=== PATIENT | female | born 1960 | race Hispanic/Latino ===

== ENCOUNTER 2024-05-13 07:14 | Inpatient (IN) | payer OTHER ==
[2024-05-13] VITALS (50 sets, daily range): BP systolic 79–130; BP diastolic 56–96; PULSE 72–134; RESP 14–32; TEMP 97.7–98.8; O2SAT 86–100
[~2024-05-13] VITALS: Ht 167.6 cm; Wt 66.7 kg
[2024-05-13] MEDS ORDERED: SODIUM CHLORIDE FLUSH 10 ML SYR IV PRN (08:15)
[2024-05-13] MEDS ORDERED: HEPARIN SOD (PORCINE) 5,000 UNIT/ML VIAL IV ONE (08:30)
[2024-05-13] MEDS ORDERED: DILTIAZEM HCL IV SCH (08:30)
[2024-05-13] MEDS ORDERED: SODIUM CHLORIDE 0.9% IV SCH (08:30)
[2024-05-13] MEDS: DILTIAZEM HCL 5 MG/ML 5 ML VIAL IV ONE (08:44)
[2024-05-13] MEDS: SODIUM CHLORIDE 0.9% 1000ML 1,000 ML IV ONE (08:45)
[2024-05-13] MEDS: SODIUM CHLORIDE 0.9% 1000ML 1,000 ML IV SCH (09:30)
[2024-05-13] MEDS ORDERED: DIPHENHYDRAMINE HCL 25 MG CAP PO ONE (09:45)
[2024-05-13] MEDS ORDERED: DEXAMETHASONE 10MG/ML PF INJ IV ONE (09:45)
[2024-05-13] MEDS ORDERED: ACETAMINOPHEN 325 MG TAB PO PRN ×2 (09:45→14:45)
[2024-05-13] MEDS ORDERED: ONDANSETRON HCL INJ 2MG/ML 2ML 2 MG/ML VIAL IV PRN (11:45)
[2024-05-13 12:38] LABS: ALBUMIN 3.7 g/dL (3.5-5.0); ALBUMIN/GLOBULIN RATIO 1.2 (0.8-2.0); ANION GAP 12.9 mmol/L (8-16); BILIRUBIN,TOTAL 0.8 mg/dL (0.2-1.2); CALCIUM 9.4 mg/dL (8.4-10.2); CREATININE, SERUM 1.12 mg/dL (0.57-1.11); POTASSIUM 3.9 mmol/L (3.5-5.1); TOTAL PROTEIN 6.9 g/dL (6.5-8.1)
[2024-05-13 12:46] LABS: TROPONIN I < 0.05 ng/mL (0.0-0.40)
[2024-05-13] MEDS: DEXAMETHASONE SOD PHOS 10 MG/1 ML VIAL IV ONE (13:30)
[2024-05-13] MEDS: DIPHENHYDRAMINE HCL 25 MG CAP PO ONE (13:30)
[2024-05-13] MEDS ORDERED: LIDOCAINE 4% PATCH TP PRN (14:45)
[2024-05-13] MEDS ORDERED: DOCUSATE SODIUM 100 MG CAP PO PRN (14:45)
[2024-05-13] MEDS ORDERED: POTASSIUM CHLORIDE 20 MEQ TAB CR PO PRN (14:45)
[2024-05-13] MEDS ORDERED: MELATONIN 5 MG TABLET PO PRN (14:45)
[2024-05-13] MEDS ORDERED: HYDRALAZINE HCL 20 MG/ML VIAL IV PRN (14:45)
[2024-05-13] MEDS ORDERED: ALBUTEROL/IPRATROPIUM 3 ML NEB NEB PRN (14:45)
[2024-05-13] MEDS ORDERED: SIMETHICONE 80 MG CHEW PO PRN (14:45)
[2024-05-13] MEDS ORDERED: DIPHENHYDRAMINE HCL 25 MG CAP PO PRN (14:45)
[2024-05-13] MEDS ORDERED: DEXTROSE 50% SYRINGE 50 ML IV PRN (14:45)
[2024-05-13] MEDS ORDERED: BENZONATATE 100 MG CAP PO PRN (14:45)
[2024-05-13] MEDS: METOPROLOL TARTRATE 25 MG TAB PO SCH (16:19)
[2024-05-13] MEDS ORDERED: IOPAMIDOL 370 MG/ML 100 ML INFUS..BTL INJ ONE (16:25)
[2024-05-13 16:38] LABS: CREATINE KINASE 45 IU/L (29-168)
[2024-05-13 18:19] LABS: FERRITIN < 1.00 ng/mL (4.63-204.00)
[2024-05-13 18:39] LABS: % IRON SATURATION 1 % (15-50); IRON 7 ug/dL (50-170); TOTAL IRON BINDING CAPACITY 529 ug/dL (261-478); TRANSFERRIN 378 mg/dL (180-382)
[2024-05-14] VITALS (83 sets, daily range): BP systolic 97–142; BP diastolic 53–114; PULSE 58–108; RESP 14–34; TEMP 97.9–98.6; O2SAT 93–100
[2024-05-14 01:29] LABS: BASOPHILS % 0.2 % (0.0-1.0); LYMPHOCYTES % 21.3 % (18.0-39.1); MEAN CORPUSCULAR HEMOGLOBIN 11.7 pg (28-32); MEAN CORPUSCULAR VOLUME 58.3 fL (81-99); MONOCYTES # (AUTO) 0.3 (0.2-0.8); MONOCYTES % 6.5 % (4.4-11.3); NEUTROPHILS # (AUTO) 3.3 (2.1-6.9); NEUTROPHILS % 71.4 % (38.7-80.0); PLATELET COUNT 329 x10e3/uL (140-360); RED CELL DISTRIBUTION WIDTH 21.3 % (11.7-14.4); WHITE BLOOD COUNT 4.65 x10e3/uL (4.8-10.8)
[2024-05-14 01:46] LABS: HEMOGLOBIN 2.1 g/dL (12.0-16.0)
[2024-05-14 01:47] LABS: HEMATOCRIT 10.5 % (34.2-44.1)
[2024-05-14 03:17] LABS: FOLATE 16.3 ng/mL (7.0-15.4)
[2024-05-14 04:30] LABS: RBC MORPHOLOGY COMMENT ABNORMAL
[2024-05-14 04:31] LABS: ANISOCYTOSIS MARKED; MICROCYTOSIS MARKED
[2024-05-14 04:32] LABS: ELLIPTOCYTE, RBC MODERATE; HYPOCHROMASIA MARKED; POLYCHROMASIA FEW
[2024-05-14 04:33] LABS: BURR CELLS SLIGHT; TEAR DROP CELLS MODERATE
[2024-05-14 04:34] LABS: PLATELET MORPHOLOGY COMMENT FEW GIANT; SCHISTOCYTES MODERATE
[2024-05-14 04:45] LABS: PLATELET ESTIMATE ADEQUATE
[2024-05-14 06:27] LABS: BASOPHILS % 0.4 % (0.0-1.0); HEMOGLOBIN 6.4 g/dL (12.0-16.0); LYMPHOCYTES # (AUTO) 1.3 (1.0-3.2); LYMPHOCYTES % 27.8 % (18.0-39.1); MEAN CORPUSCULAR HEMOGLOBIN 19.9 pg (28-32); MEAN CORPUSCULAR HGB CONC 28.1 g/dL (31-35); MEAN CORPUSCULAR VOLUME 70.8 fL (81-99); MONOCYTES # (AUTO) 0.5 (0.2-0.8); MONOCYTES % 11.9 % (4.4-11.3); NEUTROPHILS # (AUTO) 2.7 (2.1-6.9); PLATELET COUNT 303 x10e3/uL (140-360); RED BLOOD COUNT 3.22 x10e6/uL (3.6-5.1); RED CELL DISTRIBUTION WIDTH 28.9 % (11.7-14.4); WHITE BLOOD COUNT 4.54 x10e3/uL (4.8-10.8)
[2024-05-14 06:35] LABS: INR 1.07; PROTHROMBIN TIME 14.4 seconds (11.9-14.5)
[2024-05-14 06:41] LABS: CHOL/HDL RATIO 2.2 (3.0-3.6); MAGNESIUM 2.4 MG/DL (1.3-2.1)
[2024-05-14 06:43] LABS: HEMATOCRIT 22.8 % (34.2-44.1)
[2024-05-14 06:44] LABS: ALBUMIN 3.5 g/dL (3.5-5.0); ALBUMIN/GLOBULIN RATIO 1.3 (0.8-2.0); ANION GAP 10.9 mmol/L (8-16); BILIRUBIN,TOTAL 1.3 mg/dL (0.2-1.2); CALCIUM 9.5 mg/dL (8.4-10.2); CREATININE, SERUM 1.03 mg/dL (0.57-1.11); POTASSIUM 3.9 mmol/L (3.5-5.1); TOTAL PROTEIN 6.2 g/dL (6.5-8.1)
[2024-05-14 06:50] LABS: TROPONIN I 0.059 ng/mL (0-0.300)
[2024-05-14 07:04] LABS: THYROID STIMULATING HORMONE 1.373 uIU/mL (0.350-4.940)
[2024-05-14] MEDS ORDERED: PANTOPRAZOLE SOD 40 MG TABEC PO SCH (07:30)
[2024-05-14] MEDS: IRON SUCROSE 100 MG in SODIUM CHLORIDE 0.9% 100 ML IV SCH (13:03)
[2024-05-14] MEDS: CYANOCOBALAMIN INJ 1,000 MCG/ML VIAL IM SCH (18:19)
[2024-05-14] MEDS: SODIUM CHLORIDE 0.9% 250ML 250 ML ONE ×2 (19:18)
[2024-05-14] MEDS: SODIUM CHLORIDE 0.9% 250ML 250 ML IV ONE ×2 (19:18)
[2024-05-14] MEDS: METOPROLOL TARTRATE 25 MG TAB PO SCH (20:03)
[2024-05-14 20:20] LABS: HEMATOCRIT 31.6 % (34.2-44.1); HEMOGLOBIN 9.3 g/dL (12.0-16.0)
[2024-05-14 20:42] LABS: TROPONIN I 0.055 ng/mL (0-0.300)
[2024-05-14] MEDS: CYANOCOBALAMIN INJ 1,000 MCG/ML VIAL IM STA (23:27)
[2024-05-15] VITALS (21 sets, daily range): BP systolic 108–134; BP diastolic 58–81; PULSE 45–151; RESP 14–30; TEMP 97.8–98.6; O2SAT 92–100
[2024-05-15 06:26] LABS: BASOPHILS # (AUTO) 0.1 (0.0-0.1); BASOPHILS % 0.8 % (0.0-1.0); EOSINOPHILS % 0.4 % (0.0-6.0); HEMATOCRIT 32.5 % (34.2-44.1); HEMOGLOBIN 9.6 g/dL (12.0-16.0); LYMPHOCYTES # (AUTO) 1.2 (1.0-3.2); LYMPHOCYTES % 12.6 % (18.0-39.1); MEAN CORPUSCULAR HEMOGLOBIN 22.2 pg (28-32); MEAN CORPUSCULAR HGB CONC 29.5 g/dL (31-35); MEAN CORPUSCULAR VOLUME 75.2 fL (81-99); MONOCYTES # (AUTO) 0.9 (0.2-0.8); MONOCYTES % 9.8 % (4.4-11.3); NEUTROPHILS # (AUTO) 6.9 (2.1-6.9); NEUTROPHILS % 75.5 % (38.7-80.0); PLATELET COUNT 245 x10e3/uL (140-360); RED BLOOD COUNT 4.32 x10e6/uL (3.6-5.1); RED CELL DISTRIBUTION WIDTH 27.3 % (11.7-14.4); WHITE BLOOD COUNT 9.18 x10e3/uL (4.8-10.8)
[2024-05-15 06:51] LABS: ANION GAP 10.5 mmol/L (8-16); CALCIUM 9.2 mg/dL (8.4-10.2); CREATININE, SERUM 0.82 mg/dL (0.57-1.11); POTASSIUM 3.5 mmol/L (3.5-5.1)
[2024-05-15] MEDS ORDERED: CYANOCOBALAMIN INJ 1,000 MCG/ML VIAL IM SCH (09:00)
[2024-05-15 09:42] LABS: BASOPHILS % (MANUAL) 1 % (0-1.5); LYMPHOCYTES % (MANUAL) 8 % (19-48); MONOCYTES % (MANUAL) 12 % (3.4-9.0); NEUTROPHILS % (MANUAL) 78 % (40-74); PLATELET ESTIMATE ADEQUATE; PLATELET MORPHOLOGY COMMENT NORMAL; RBC MORPHOLOGY COMMENT ABNORMAL; REACTIVE LYMPHOCYTES 1
[2024-05-15 09:43] LABS: ANISOCYTOSIS SLIGHT; ELLIPTOCYTE, RBC SLIGHT; OVALOCYTES FEW
[2024-05-15 09:44] LABS: HYPOCHROMASIA MODERATE; POIKILOCYTOSIS SLIG
[2024-05-15] MEDS: BISACODYL 5 MG TAB EC PO ONE ×2 (13:00→15:58)
[2024-05-15] MEDS: CITRATE OF MAGNESIA 300ML BOTTLE PO ONE (20:29)
[2024-05-16] VITALS (17 sets, daily range): BP systolic 103–140; BP diastolic 59–89; PULSE 46–89; RESP 15–27; TEMP 98–98.5; O2SAT 92–99
[2024-05-16] MEDS: CITRATE OF MAGNESIA 300ML BOTTLE PO ONE (05:07)
[2024-05-16 05:38] LABS: BASOPHILS # (AUTO) 0.1 (0.0-0.1); BASOPHILS % 1.2 % (0.0-1.0); EOSINOPHILS # (AUTO) 0.1 (0.0-0.4); EOSINOPHILS % 1.4 % (0.0-6.0); HEMATOCRIT 35.7 % (34.2-44.1); HEMOGLOBIN 10.4 g/dL (12.0-16.0); LYMPHOCYTES # (AUTO) 1.3 (1.0-3.2); LYMPHOCYTES % 19.5 % (18.0-39.1); MEAN CORPUSCULAR HEMOGLOBIN 22.3 pg (28-32); MEAN CORPUSCULAR HGB CONC 29.1 g/dL (31-35); MEAN CORPUSCULAR VOLUME 76.6 fL (81-99); MONOCYTES # (AUTO) 0.6 (0.2-0.8); MONOCYTES % 9.7 % (4.4-11.3); NEUTROPHILS # (AUTO) 4.4 (2.1-6.9); NEUTROPHILS % 67.1 % (38.7-80.0); PLATELET COUNT 253 x10e3/uL (140-360); RED BLOOD COUNT 4.66 x10e6/uL (3.6-5.1); RED CELL DISTRIBUTION WIDTH 28.5 % (11.7-14.4); WHITE BLOOD COUNT 6.58 x10e3/uL (4.8-10.8)
[2024-05-16 05:52] LABS: ANION GAP 11.1 mmol/L (8-16); CALCIUM 9.2 mg/dL (8.4-10.2); CREATININE, SERUM 0.79 mg/dL (0.57-1.11)
[2024-05-16 05:53] LABS: POTASSIUM 3.1 mmol/L (3.5-5.1)
[2024-05-16 08:52] LABS: ANISOCYTOSIS SLIGHT; ELLIPTOCYTE, RBC SLIGHT; HYPOCHROMASIA MODERATE; LYMPHOCYTES % (MANUAL) 20 % (19-48); MONOCYTES % (MANUAL) 7 % (3.4-9.0); NEUTROPHILS % (MANUAL) 73 % (40-74); NUCLEATED RED BLOOD CELLS 1; OVALOCYTES FEW; PLATELET ESTIMATE ADEQUATE; PLATELET MORPHOLOGY COMMENT NORMAL; POIKILOCYTOSIS SLIGHT; RBC MORPHOLOGY COMMENT ABNORMAL
[2024-05-16] MEDS ORDERED: LIDOCAINE HCL 2% LOCAL INJ 5 ML SDV VIAL INJ ONE (14:30)
[2024-05-16] MEDS ORDERED: PROPOFOL IV EMULSION 50 ML IV ONE (14:30)
[2024-05-16] MEDS ORDERED: FENTANYL CITRATE/PF 100MCG/2 ML INJ ONE (14:30)
[2024-05-16] MEDS ORDERED: METOCLOPRAMIDE HCL 10 MG/2ML VIAL ONE (15:58)
[2024-05-17] VITALS: BP 110/67; PULSE 74; RESP 17; TEMP 98.5; O2SAT 99
[2024-05-17 04:00] VITALS: BP 114/56; PULSE 89; RESP 17; TEMP 99; O2SAT 99
[2024-05-17 07:21] VITALS: PULSE 85; RESP 20; O2SAT 95
[2024-05-17 08:00] VITALS: BP 130/79; PULSE 74; RESP 20; TEMP 98.9; O2SAT 98
[2024-05-17 12:40] VITALS: BP 135/90; PULSE 86; RESP 19; TEMP 99.1; O2SAT 99
[2024-05-17] MEDS ORDERED: PANTOPRAZOLE SO40 MG PO (16:02)
[2024-05-17 16:03] LABS: HEMATOCRIT 35.9 % (34.2-44.1); HEMOGLOBIN 10.5 g/dL (12.0-16.0)
[2024-05-17] MEDS ORDERED: METOPROLOL SUCC50 MG PO (16:03)
[2024-05-17] MEDS ORDERED: ASPIRIN81 MG PO (16:03)
[2024-05-17 16:22] LABS: ANION GAP 13.3 mmol/L (8-16); CALCIUM 7.7 mg/dL (8.4-10.2); CREATININE, SERUM 0.8 mg/dL (0.57-1.11); POTASSIUM 4.3 mmol/L (3.5-5.1)
[2024-05-17 16:27] VITALS: BP 134/92; PULSE 98; RESP 19; TEMP 98.5; O2SAT 99
[2024-05-17] MEDS ORDERED: ONDANSETRON HCL 4 MG ORAL DISINTEGRATING TAB PO PRN (18:00)
[2024-05-17] MEDS: PANTOPRAZOLE SOD 40 MG TABEC PO SCH (18:00)
== END 2024-05-17 17:45 | disposition home or self-care (01) | DRG 812 ==
LOC: EDSEX 07:14 → FSED 07:20 → ERHOLD 09:31 → ICU 11:21 → MED/SURG 05-16 13:03
PROVIDERS: ADMIT Internal Medicine; ATTEND Internal Medicine
PROC: 30233N1 Transfusion of Nonautologous Red Blood Cells into Peripheral Vein, Percutaneous Approach (ICD-10-PCS; principal; 2024-05-13)
PROC: 02HV33Z Insertion of Infusion Device into Superior Vena Cava, Percutaneous Approach (ICD-10-PCS; 2024-05-13)
PROC: B548ZZA Ultrasonography of Superior Vena Cava, Guidance (ICD-10-PCS; 2024-05-13)
PROC: 30233N1 Transfusion of Nonautologous Red Blood Cells into Peripheral Vein, Percutaneous Approach (ICD-10-PCS; 2024-05-14)
PROC: 0DB78ZZ Excision of Stomach, Pylorus, Via Natural or Artificial Opening Endoscopic (ICD-10-PCS; 2024-05-16)
PROC: 0DJD8ZZ Inspection of Lower Intestinal Tract, Via Natural or Artificial Opening Endoscopic (ICD-10-PCS; 2024-05-16)
PROC: 0DB68ZX Excision of Stomach, Via Natural or Artificial Opening Endoscopic, Diagnostic (ICD-10-PCS; 2024-05-16 15:25)
DX: D50.9 Iron deficiency anemia, unspecified (principal); I50.32 Chronic diastolic (congestive) heart failure; I11.0 Hypertensive heart disease with heart failure; I48.91 Unspecified atrial fibrillation; E86.0 Dehydration; E53.8 Deficiency of other specified B group vitamins; D72.819 Decreased white blood cell count, unspecified; K31.7 Polyp of stomach and duodenum; K44.9 Diaphragmatic hernia without obstruction or gangrene; K21.00 Gastro-esophageal reflux disease with esophagitis, without bleeding; K57.30 Diverticulosis of large intestine without perforation or abscess without bleeding; K64.8 Other hemorrhoids; K59.00 Constipation, unspecified; E78.5 Hyperlipidemia, unspecified; I35.0 Nonrheumatic aortic (valve) stenosis; I45.10 Unspecified right bundle-branch block; R00.0 Tachycardia, unspecified; J45.909 Unspecified asthma, uncomplicated; Z11.52 Encounter for screening for COVID-19; Z79.899 Other long term (current) drug therapy; Z79.82 Long term (current) use of aspirin
CPT/HCPCS: 36415; 36569; 43235; 43239; 45378; 71045; 74177; 80048; 80053; 80061; 82550; 82607; 82728; 82746; 83010; 83540; 83735; 84443; 84466; 84484; 85014; 85018; 85025; 85045; 85610; 85730; 86850; 86900; 86920; 88305; 88342; 93005; 93306; 94760; 94799; 99252; 99284; J1100; J1644; J1756; J2003; J2470; J2765; J3420; J7030; J7050; P9016; Q9967